=== PATIENT | male | born 1985 | race Hispanic/Latino ===

== ENCOUNTER → 2022-09-03 11:07 | Outpatient (CLI) | payer OTHER, SELFPAY ==
[2022-09-03 11:50] LABS: Add Manual Diff / Slide Review NO; Basophils Absolute Auto 100 /uL (0-100); Basophils Percent Auto 0.9 % (0-2); Eosinophils Absolute Auto 400 /uL (0-450); Eosinophils Percent Auto 5.5 % (2-4); Hematocrit 44.3 % (41-53); Hemoglobin 15.6 g/dL (13.5-17.5); Lymphocytes Absolute Auto 2000 /uL (1100-4500); Lymphocytes Percent Auto 30.6 % (25-40); Mean Corpuscular HGB Conc 35.2 % (30-36); Mean Corpuscular Hemoglobin 29.2 PG (26-34); Monocytes Absolute Auto 500 /uL (0-900); Monocytes Percent Auto 7.8 % (3-14); Neutrophils Absolute Auto 3600 /uL (1500-7000); Neutrophils Percent Auto 55.2 % (50-75); Platelet Count 325 X10^3/uL (150-400); Red Blood Cell Count 5.34 X10^6/uL (4.5-5.9); Red Cell Distribution Width 13.4 % (11.6-14.8); White Blood Cell Count 6.6 X10^3/uL (4.5-11.0)
[2022-09-03 12:43] LABS: Alanine Aminotransferase 70 IU/L (<50); Alkaline Phosphatase 79 U/L (38-126); Aspartate Aminotransferase 37 IU/L (17-59); BUN Creatinine Ratio 7.3 (6-22); Bilirubin Total 1.3 mg/dL (0.2-1.3); Blood Urea Nitrogen 7 mg/dL (9-20); Calcium 9.5 mg/dL (8.4-10.2); Carbon Dioxide 28 mmol/L (22-32); Chloride 102 mmol/L (98-107); Cholesterol 195 mg/dL (140-199); Estimated Glomerular Filt Rate > 60 mL/min (>60); Glucose 96 mg/dL (70-100); HDL Cholesterol 38 mg/dL (40-60); HEMOLYSIS < 15 (0-50); LDL Cholesterol Calculated 118 mg/dL (<100); Potassium 4.2 mmol/L (3.4-5.1); Sodium 141 mmol/L (137-145); Total Protein 7.5 g/dL (6.3-8.2); Triglycerides 193 mg/dL (35-150)
[2022-09-03 13:13] LABS: TSH w/ Reflex to FT4 0.85 uIU/mL (0.47-4.68)
[2022-09-03 13:45] LABS: Folate 7.5 ng/mL (2.76-20.0); Vitamin B12 448 pg/mL (239-931)
[2022-09-06 16:19] LABS: Albumin 4.6 g/dL (3.5-5.0); Albumin Globulin Ratio 1.6 (1.0-2.8); Globulin 2.9 g/dL (1.7-4.1)
== END ==
PROVIDERS: PCP Family Medicine; Referring Provider Family Medicine; Visit Provider Family Medicine
DX: G56.91 Unspecified mononeuropathy of right upper limb (principal); K75.81 Nonalcoholic steatohepatitis (NASH); R19.5 Other fecal abnormalities; Z13.220 Encounter for screening for lipoid disorders; Z13.29 Encounter for screening for other suspected endocrine disorder; E56.9 Vitamin deficiency, unspecified
CPT/HCPCS: 36415; 80053; 80061; 82607; 82746; 84443; 85025

== ENCOUNTER → 2022-10-02 13:11 | Outpatient (CLI) | payer OTHER, SELFPAY ==
[2022-10-02 16:21] LABS: Vitamin D 25 Hydroxy (D3) 25.1 ng/mL (30.0-100.0)
== END ==
PROVIDERS: PCP Family Medicine; Referring Provider Family Medicine; Visit Provider Family Medicine
DX: E55.9 Vitamin D deficiency, unspecified (principal)
CPT/HCPCS: 36415; 82306

== ENCOUNTER → 2022-12-28 12:45 | Outpatient (CLI) | payer OTHER, SELFPAY ==
[2022-12-28 13:26] LABS: Erythrocyte Sedimentation Rate 1 MM/HR (0-15)
[2022-12-28 13:30] LABS: C-Reactive Protein Quant 0.5 mg/dL (<1.0)
[2022-12-28 13:56] LABS: Thyroid Stimulating Hormone 1.54 uIU/mL (0.47-4.68)
[2022-12-31 20:08] LABS: Tissue Transglutaminase IgA <2 U/mL (0-3); Tissue Transglutaminase IgG <2 U/mL (0-5)
== END ==
PROVIDERS: PCP Family Medicine; Referring Provider Internal Medicine Gastroenterology; Visit Provider Internal Medicine Gastroenterology
DX: R19.7 Diarrhea, unspecified (principal); K92.1 Melena; K76.0 Fatty (change of) liver, not elsewhere classified
CPT/HCPCS: 36415; 83516; 84443; 85651; 86140

== ENCOUNTER 2023-03-10 13:11 | Day surgery (SDC) | payer OTHER, SELFPAY ==
--- NOTE | 2023-03-10 | PATH_ITS ---
[facility] Accession Number: [id number] No. of containers..01 Tissue . 01 Material submitted: . colon - RANDOM COLON BIOPSIES . 01 Diagnosis: Random Colon, Biopsy: Colonic mucosa with no diagnostic abnormality. Negative for active, chronic, and microscopic colitis. Negative for dysplasia and malignancy. . MRV 03/14/2023 1221 Local . 01 Electronically signed: . Yuliya Byrne MD, Pathologist NPI- [id number] . 01 Gross description: . RANDOM COLON BIOPSIES: Received in formalin are 2 fragment(s) of feldman, soft tissue measuring 0.2 x 0.2 x 0.2 cm to 0.3 x 0.2 x 0.2 cm submitted entirely in 1 cassette(s) /LALA 03/13/2023 0020 Local . 01 Pathologist provided ICD-10: Z12.11 . 01 CPT . 376834 Specimen Comment: A courtesy copy of this report has been sent to [phone] Performed at: 01 [facility] [address] [place] [address] [id number] MD Josemanuel Johansen MD Phone: [phone]
[2023-03-10 14:11] VITALS: BP 162/108; PULSE 68; RESP 18; TEMP 36; O2SAT 96; BMI 34.1
--- NOTE | 2023-03-10 15:24 | P.HP_ITS ---
History of Present Illness History of Present Illness Date Patient Seen: 03/10/23 Time Patient Seen: 15:25 Chief complaint: Colonoscopy Narrative: I reviewed my recent office note. No significant changes. The patient has seen some blood per rectum once again in the last few days. He tends to run with loose stools. [facility] Social History household members: family Smoking Status: Never smoker alcohol intake: never Meds Home Medications and Allergies Home Medications Medication Instructions Recorded Confirmed Type bupropion HCl 150 mg 24 hr tablet, 150 mg PO QAM 03/10/23 03/10/23 History extended release (Wellbutrin XL) Allergies Allergy/AdvReac Type Severity Reaction Status Date / Time No Known Drug Allergies Allergy Verified 03/10/23 14:07 Review of Systems Review of Systems ROS: Yes All systems reviewed with the patient and are negative except as otherwise documented Exam Vital Signs (past 8 hours): - 03/10/23 14:11 Temperature 96.8 F L Pulse Rate 68 Respiratory Rate 18 Blood Pressure 162/108 H Pulse Oximetry 96 Oxygen Delivery Method Room Air Oxygen Delivery Method Room Air Const General: cooperative HENMT Head: normal to inspection Eyes General: appearance normal, both eyes and all related structures Neck Neck: normal visual inspection Chest Chest: normal inspection of the chest Resp Effort & Inspection: normal respiratory effort Cardio Rate: regular rate GI Inspection: normal to inspection Skin General: no rashes or lesions noted Neuro General: patient alert and patient awake Extrem General: normal to inspection and no pedal edema Psych Appearance: grossly normal Assessment & Plan Assessment & Plan narrative: 37-year-old male with chronic loose stool and intermittent rectal bleeding. Diagnostic colonoscopy is pursued today.
--- NOTE | 2023-03-10 15:26 | PM.HP.1 ---
History of Present Illness History of Present Illness Chief complaint: Colonoscopy Narrative: I reviewed my recent office note. No significant changes. The patient has seen some blood per rectum once again in the last few days. He tends to run with loose stools. [facility] Social History household members: family Smoking Status: Never smoker alcohol intake: never Meds Home Medications and Allergies Home Medications Medication Instructions Recorded Confirmed Type bupropion HCl 150 mg 24 hr tablet, 150 mg PO QAM 03/10/23 03/10/23 History extended release (Wellbutrin XL) Allergies Allergy/AdvReac Type Severity Reaction Status Date / Time No Known Drug Allergies Allergy Verified 03/10/23 14:07 Exam Vital Signs (past 8 hours): - 03/10/23 14:11 Temperature 96.8 F L Pulse Rate 68 Respiratory Rate 18 Blood Pressure 162/108 H Pulse Oximetry 96 Oxygen Delivery Method Room Air Oxygen Delivery Method Room Air
--- NOTE | 2023-03-10 15:26 | PM.PREOP ---
Pre-operative Note Interval Note History & Physical reviewed/Exam performed by Physician: Yes Changes to H&P: No ASA Class (for procedural sedation): I
[2023-03-10] MEDS: LACTATED RINGERS 1,000 ML 100 ML IV (16:06)
--- NOTE | 2023-03-10 16:32 | PM.OP.COLON ---
Operative Date/Time/Diagnoses Date of procedure: 03/10/23 Time of procedure: 16:32 Pre-op diagnosis: Rectal bleeding diarrhea Post-op diagnosis: same Procedure & Clinicians Study performed: Colonoscopy with random biopsies Same procedure as scheduled: Yes Indications: Rectal bleeding diarrhea Surgeon: Arturo Blum Procedure Notes SCOAP/Timeout: Done Procedure in detail: After the risks and benefits were explained, written and verbal informed consent was obtained. The patient was brought into the procedure room and placed into the left lateral decubitus position. Please see anesthesia notes for sedation details. Digital rectal examination was accomplished. The scope was introduced into the patient and advanced under direct visualization to the cecum as identified by the appendiceal orifice and ileocecal valve. The scope was slowly withdrawn to carefully examine the mucosa for any defects or lesions. Comprehensive imaging was accomplished throughout the rectum including the dentate line. The colon was decompressed, the scope was then removed from the patient who tolerated the procedure well. Adult colonoscope Bowel prep adequate Scope withdrawal time: 10 minutes Sedation minutes: 16 Complications: none Impression: The patient had a tense anal sphincter mechanism. Mild internal hemorrhoids were noted on direct views. No fissuring identified. No proctitis no colitis. Random colon biopsies were taken for exclusion of microscopic colitis. The patient had a fairly lengthy somewhat redundant colon. The terminal ileum was interrogated and revealed some nodularity consistent with lymphoid hyperplasia but no mucosal inflammation was apparent. Endoscopic diagnosis 1. Mild internal hemorrhoids 2. Lengthy redundant colon but otherwise unremarkable exam. Post-procedure Plan for aftercare: 1. Await histopathology 2. Initiate a fiber based bowel regimen with Consul Konsyl once or twice a daily. 3. Follow up GI clinic Disposition: PACU
[2023-03-10 16:33] VITALS: BP 119/71; PULSE 69; RESP 18; TEMP 36.4; O2SAT 93
[2023-03-10 16:38] VITALS: BP 115/83; PULSE 72; RESP 14; O2SAT 94
[2023-03-10 16:44] VITALS: BP 142/77; PULSE 74; RESP 16; O2SAT 96
[2023-03-10 16:47] VITALS: BP 126/80; PULSE 62; RESP 18; TEMP 36.6; O2SAT 97
== END 2023-03-10 17:07 | disposition home or self-care (01) ==
PROVIDERS: PCP Family Medicine; Referring Provider Internal Medicine Gastroenterology; Visit Provider Internal Medicine Gastroenterology
PROC: 0DJD8ZZ Inspection of Lower Intestinal Tract, Via Natural or Artificial Opening Endoscopic (ICD-10-PCS; CPT 45378; principal; 2023-03-10 14:30)
DX: K62.5 Hemorrhage of anus and rectum (principal); R19.7 Diarrhea, unspecified; K64.8 Other hemorrhoids
CPT/HCPCS: 45380; J2704

== ENCOUNTER 2023-08-21 19:03 | Emergency (ER) | payer OTHER, BC, SELFPAY ==
[2023-08-21 19:05] VITALS: BP 158/96; PULSE 90; RESP 14; TEMP 37; O2SAT 95; BMI 35.6
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
[2023-08-21 20:39] VITALS: BP 145/84; PULSE 71; RESP 18; TEMP 36.4; O2SAT 96
[2023-08-21] MEDS: IBUPROFEN 400 MG TABLET 800 MG PO (20:40)
== END 2023-08-21 20:57 | disposition home or self-care (01) ==
PROVIDERS: Emergency Provider Emergency Medicine; PCP Family Medicine
DX: S16.1XXA Strain of muscle, fascia and tendon at neck level, initial encounter (principal); V89.2XXA Person injured in unspecified motor-vehicle accident, traffic, initial encounter
CPT/HCPCS: 99282; 99284

== ENCOUNTER → 2025-01-22 13:26 | Outpatient (CLI) | payer BC, OTHER, SELFPAY ==
--- NOTE | 2025-01-22 13:28 | DI.CT.S_ITS ---
PROCEDURE: CT CERVICAL SPINE WO CON INDICATIONS: L UPPER AND LOWER EXT TINGLING AND WEAKNESS TECHNIQUE: Noncontrast 3 mm thick sections acquired from the skull base to the T4 level. Sagittal and coronal reformats were then constructed. For radiation dose reduction, the following was used: automated exposure control, adjustment of mA and/or kV according to patient size. COMPARISON: None. FINDINGS: Image quality: Excellent. Bones: There is near complete loss of cervical lordosis. There is no spondylolisthesis. Status post total disc replacement at C5-C6. The metallic hardware appears intact, no suspicious lucency. No other focal osseous lesion seen. No definite spinal stenosis seen. No significant degenerative changes. Soft tissues: Prevertebral soft tissues are normal in thickness. No paravertebral hematomas. No apical pneumothoraces. IMPRESSION: 1. Unremarkable appearance of total disc replacement at C5-C6. 2. No focal osseous lesions and no definite spinal stenosis seen. Dictated by: Pedro Lopez M.D. on 01/22/2025 at 21:04 Approved by: Pedro Lopez M.D. on 01/22/2025 at 21:12
== END ==
LOC: CT 13:27
PROVIDERS: PCP Family Medicine; Referring Provider Chiropractor; Visit Provider Chiropractor
DX: M54.12 Radiculopathy, cervical region (principal)
CPT/HCPCS: 72125

== ENCOUNTER 2025-02-28 11:41 | Emergency (ER) | payer BC, SELFPAY ==
[2025-02-28 12:22] VITALS: BP 158/97; PULSE 62; RESP 17; TEMP 36.1; O2SAT 98; BMI 36.9
--- NOTE | 2025-02-28 12:28 | DI.RAD.S_ITS ---
PROCEDURE: XR CHEST 1V INDICATIONS: Chest Pain TECHNIQUE: One view of the chest was acquired. COMPARISON: None. FINDINGS: Surgical changes and devices: None. Lungs and pleura: Lungs are clear. No pleural effusions or pneumothorax. Mediastinum: Mediastinal contours appear normal. Heart size is normal. Bones and chest wall: No suspicious bony lesions. Overlying soft tissues appear unremarkable. IMPRESSION: No acute cardiopulmonary pathology. Dictated by: Won Hernandez M.D. on 02/28/2025 at 12:31 Approved by: Won Hernandez M.D. on 02/28/2025 at 12:31
--- NOTE | 2025-02-28 12:39 | EKG_ITS ---
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
[2025-02-28 12:42] LABS: Add Manual Diff / Slide Review NO; Hematocrit 45.3 % (41-53); Hemoglobin 16.1 g/dL (13.5-17.5); Lymphocytes Absolute Auto 2100 /uL (1100-4500); Mean Corpuscular HGB Conc 35.6 % (30-36); Mean Corpuscular Hemoglobin 29.9 PG (26-34); Mean Corpuscular Volume 84.1 fL (80-100); Platelet Count 245 X10^3/uL (150-400)
[2025-02-28 12:52] LABS: INR 1.1 (0.9-1.3); Prothrombin Time 12.7 SECONDS (9.4-12.5)
[2025-02-28 12:54] LABS: PTT Partial Thromboplastin Tim 36 SECONDS (25.1-36.5)
[2025-02-28 12:55] LABS: Alanine Aminotransferase 78 IU/L (<50); Albumin 4.8 g/dL (3.5-5.0); Albumin Globulin Ratio 1.8 (1.0-2.8); Alkaline Phosphatase 77 U/L (38-126); Blood Urea Nitrogen 14 mg/dL (9-20); Calcium 9.2 mg/dL (8.4-10.2); Carbon Dioxide 29 mmol/L (22-32); Chloride 104 mmol/L (98-107); Creatine Kinase 116 U/L (55-170); Estimated Glomerular Filt Rate > 60 mL/min (>60); Globulin 2.7 g/dL (1.7-4.1); Glucose 93 mg/dL (70-99); HEMOLYSIS < 15 (0-50); Magnesium 2.0 mg/dL (1.6-2.3); Potassium 4.3 mmol/L (3.4-5.1); Sodium 138 mmol/L (137-145); Total Protein 7.5 g/dL (6.3-8.2)
[2025-02-28 13:07] LABS: NT-proBNP (BNP-Adult 18+) < 20 pg/mL (<125); Troponin I < 0.012 ng/mL (0.01-0.034)
[2025-02-28 16:00] VITALS: BP 136/83; PULSE 80; O2SAT 96
[2025-02-28 16:30] VITALS: BP 118/63; PULSE 62; RESP 17; O2SAT 97
[2025-02-28 17:00] VITALS: BP 119/65; PULSE 64; RESP 16; O2SAT 93
[2025-02-28 17:12] LABS: Troponin I < 0.012 ng/mL (0.01-0.034)
[2025-02-28 17:30] VITALS: BP 139/79; PULSE 70; RESP 15; O2SAT 96
--- NOTE | 2025-02-28 18:50 | ED.CHESTPAIN ---
HPI - Chest Pain General Chief Complaint: Chest Pain Stated Complaint: Chest pain x 2 weeks Time Seen by Provider: 02/28/25 18:01 Source: patient Mode of arrival: Ambulatory History of Present Illness HPI narrative: 39-year-old gentleman with no significant past medical history, presents with midsternal chest pain intermittently for the past 2 weeks that happens at rest and with activity but not associated with any radiating symptoms nausea, vomiting, diaphoresis, back pain, shortness breath, cough, leg pain or swelling. He has not taken anything for it. Nothing makes it better or worse. Of note he did have a stress test treadmill 2 years ago that was all negative. Other than what is stated 14 point review of system is negative. Related Data Home Medications ?Medication ?Instructions ?Recorded ?Confirmed bupropion HCl 150 mg 24 hr tablet, 150 mg PO QAM 03/10/23 03/10/23 extended release (Wellbutrin XL) Allergies Allergy/AdvReac Type Severity Reaction Status Date / Time No Known Drug Allergies Allergy Verified 02/28/25 12:22 Review of Systems Review of Systems ROS Unobtainable: All systems reviewed & are unremarkable except as noted in HPI and below Patient History Social History household members: family alcohol intake: never Smoking Status: Never smoker Exam Narrative Exam Narrative: GENERAL: [39] year old patient appears stated age. Well-developed patient, in mild distress. HEAD: Atraumatic. Normocephalic. EYES: Pupils equal round and reactive. Extraocular motions intact. No scleral icterus. No injection or drainage. ENT: Nose without bleeding, purulent drainage. Throat without erythema, tonsillar hypertrophy or exudate. Airway patent. NECK: Trachea midline. Non tender CARDIOVASCULAR: Regular rate and rhythm without murmurs, gallops, or rubs. RESPIRATORY: Clear to auscultation. Breath sounds equal bilaterally. No wheezes, rales, or rhonchi. GASTROINTESTINAL: Abdomen soft, non-tender, nondistended. EXTREMITIES: No edema or joint tenderness. BACK: Nontender without deformity or crepitance. No flank tenderness. NEURO: AOx3. SKIN: No rash or erythema of visible areas Initial Vital Signs Initial Vital Signs: Vital Signs Temperature 97.0 F L 02/28/25 12:22 Pulse Rate 62 02/28/25 12:22 Respiratory Rate 17 02/28/25 12:22 Blood Pressure 158/97 H 02/28/25 12:22 Pulse Oximetry 98 02/28/25 12:22 Oxygen Delivery Method Room Air 02/28/25 12:22 Scores HEART Score Heart Score history: Slightly Suspicious Heart Score EKG: Normal Heart Score Age: < 45 years old Heart Score risk factors: No known risk factors Heart Score troponin: < or = to normal limit Heart Score Total: 0 Course Orders Ordered: ED Orders 02/28/25 12:28 XR chest 1V Stat EKG-12 Lead Stat 02/28/25 12:33 Complete Blood Count AUTO DIFF Stat Comprehensive Metabolic Panel Stat Magnesium Stat NT-proBNP (BNP-Adult 18+) Stat PTT Partial Thromboplastin Dean Stat Prothrombin Time INR Stat Troponin & CK Cardiac Panel Stat 02/28/25 16:31 Trop I [Troponin I] Stat Discontinued Medications Aspirin (Aspirin 81 Mg Chew Tab) 324 mg PO NOW ONE Stop: 02/28/25 12:29 Last Admin: 02/28/25 16:10 Dose: Not Given Documented By: BT Vital Signs Vital signs: Vital Signs - 8 hr 02/28/25 12:22 02/28/25 16:00 02/28/25 16:00 Temperature 97.0 F L Pulse Rate 62 80 Respiratory Rate 17 Blood Pressure 158/97 H 136/83 Pulse Oximetry 98 96 Oxygen Delivery Method Room Air 02/28/25 16:30 02/28/25 16:30 02/28/25 17:00 Temperature Pulse Rate 62 64 Respiratory Rate 17 16 Blood Pressure 118/63 Pulse Oximetry 97 93 Oxygen Delivery Method 02/28/25 17:00 02/28/25 17:30 02/28/25 17:30 Temperature Pulse Rate 70 Respiratory Rate 15 Blood Pressure 119/65 139/79 Pulse Oximetry 96 Oxygen Delivery Method Room Air MDM - Chest Pain Lab Data 02/28/25 12:33 02/28/25 12:33 Labs: Lab Results 02/28/25 02/28/25 Range/Units 12:33 16:31 WBC 6.8 (4.5-11.0) X10^3/uL RBC 5.38 (4.5-5.9) X10^6/uL Hgb 16.1 (13.5-17.5) g/dL Hct 45.3 (41-53) % MCV 84.1 (80-100) fL MCH 29.9 (26-34) PG MCHC 35.6 (30-36) % RDW 12.9 (11.6-14.8) % Plt Count 245 (150-400) X10^3/uL Neut % (Auto) 54.2 (50-75) % Lymph % (Auto) 30.3 (25-40) % Wilson % (Auto) 7.6 (3-14) % Eos % (Auto) 7.0 H (2-4) % Baso % (Auto) 0.9 (0-2) % Neut # (Auto) 3700 (7495-9123) /uL Lymph # (Auto) 2100 (4647-0951) /uL Wilson # (Auto) 500 (0-900) /uL Eos # (Auto) 500 H (0-450) /uL Baso # (Auto) 100 (0-100) /uL PT 12.7 H (9.4-12.5) SECONDS INR 1.1 (0.9-1.3) APTT 36 (25.1-36.5) SECONDS Sodium 138 (137-145) mmol/L Potassium 4.3 (3.4-5.1) mmol/L Chloride 104 (98-107) mmol/L Carbon Dioxide 29 (22-32) mmol/L BUN 14 (9-20) mg/dL Creatinine 0.99 (0.66-1.25) mg/dL Estimated GFR > 60 (>60) mL/min BUN/Creatinine Ratio 14.1 (6-22) Glucose 93 (70-99) mg/dL Calcium 9.2 (8.4-10.2) mg/dL Magnesium 2.0 (1.6-2.3) mg/dL Total Bilirubin 1.6 H (0.2-1.3) mg/dL AST 48 (17-59) IU/L ALT 78 H (<50) IU/L Alkaline Phosphatase 77 (38-126) U/L Total Creatine Kinase 116 (55-170) U/L Troponin I < 0.012 < 0.012 (0.01-0.034) ng/mL NT-Pro-B Natriuret Pep < 20 (<125) pg/mL Total Protein 7.5 (6.3-8.2) g/dL Albumin 4.8 (3.5-5.0) g/dL Globulin 2.7 (1.7-4.1) g/dL Albumin/Globulin Ratio 1.8 (1.0-2.8) Imaging Data Chest x-ray: Radiologist's Impression: [address] [address] XRay Report Signed Patient: Hunter Alanis MR#: [id number] : 1985 Acct:[id number] Age/Sex: 39 / M Date of Service: 02/28/25 Loc: ED Accession Number: [id number] Procedure: XR chest 1V Ordering Provider: Serjio Bryant MD PROCEDURE: XR CHEST 1V INDICATIONS: Chest Pain TECHNIQUE: One view of the chest was acquired. COMPARISON: None. FINDINGS: Surgical changes and devices: None. Lungs and pleura: Lungs are clear. No pleural effusions or pneumothorax. Mediastinum: Mediastinal contours appear normal. Heart size is normal. Bones and chest wall: No suspicious bony lesions. Overlying soft tissues appear unremarkable. IMPRESSION: No acute cardiopulmonary pathology. ECG Data Interpretation: NSR HR 64 ND 166 QRS92 QT [address]-t wave change No previous EKG to compare against [facility] Narrative Medical decision making narrative: Vital signs, nurse triage note, medication list, previous ER visits, and all imaging study reviewed. EKG showed normal sinus rhythm no with no ST-T wave changes. Heart score 0. Patient was offered medication but he declined. Differential diagnosis includes anxiety GERD as well pain PE unstable angina NSTEMI STEMI. Patient will follow up with his PCP at [facility] for further continuity of care. Discharge Plan Departure Patient Disposition: Home Clinical Impression: Chest pain Qualifiers: Chest pain type: chest pain on breathing Qualified Code(s): R07.1 - Chest pain on breathing Instructions: DI for Chest Pain Activity Restrictions/Additional Instructions: Return with new or worsening symptoms. Follow up with PCP in 1-2 days for follow up care. Prescriptions: No Action bupropion HCl [Wellbutrin XL] 150 mg Tablet Extended Release 24 Hr 150 mg PO QAM Referrals: Yesenia Mann ARNP [Primary Care Provider, Nursing] Stand Alone Forms: Patient Portal/API
== END 2025-02-28 19:07 | disposition home or self-care (01) ==
PROVIDERS: Family Medicine; Emergency Provider Family Medicine; PCP Family Medicine
DX: R07.1 Chest pain on breathing (principal)
CPT/HCPCS: 36415; 71045; 80053; 82550; 83735; 83880; 84484; 85025; 85610; 85730; 93005; 99284